=== PATIENT | female | born 1985 | race Caucasian/White ===

== ENCOUNTER 2016-11-07 18:16 | Inpatient (IN) | payer MEDICAID ==
[~2016-11-07] VITALS: Ht 160 cm; Wt 89.4 kg
[~2016-11-07 18:16] MED LIST: CEPH500 PO; ENOX40P SC; LORA-392 PO; OXYC5 PO; Z.0.NO CURRENT MEDS; ZOLP1TAB32 PO
[2016-11-07 19:41] VITALS: BP 133/86; PULSE 87
[2016-11-07 19:52] LABS: AUTOMATED NEUTROPHIL # 13.9 TH/MM3 (1.8-7.7); BASOPHIL % 0.3 % (0.0-2.0); EOSINOPHIL # 0.1 TH/MM3 (0-0.4); EOSINOPHIL % 0.7 % (0.0-4.0); HEMATOCRIT 33.4 % (35.0-46.0); HEMO FLAGS DIFF FINAL; LYMPH % 10.6 % (9.0-44.0); LYMPHOCYTE # 1.8 TH/MM3 (1.0-4.8); MEAN CELL VOLUME 87.2 FL (80.0-100.0); MEAN CORPUSCULAR HEMOGLOBIN 30.6 PG (27.0-34.0); MEAN CORPUSCULAR HGB CONC 35.1 % (32.0-36.0); MONO % 4.2 % (0.0-8.0); NEUT % 84.2 % (16.0-70.0); PLATELET COUNT 264 TH/MM3 (150-450); RED BLOOD COUNT 3.83 MIL/MM3 (4.00-5.30); RED CELL DISTRIBUTION WIDTH 14.3 % (11.6-17.2); WHITE BLOOD COUNT 16.5 TH/MM3 (4.0-11.0)
[2016-11-07 19:56] LABS: BACTERIA, URINE RARE /hpf; BLOOD, URINE SMALL (NEG); COMMENT (UR) CULT NOT INDICATED; CULTURE IF INDICATED CULT NOT INDICATED; GLUCOSE,URINE NEG (NEG); KETONE, URINE NEG (NEG); NITRITE,URINE NEG (NEG); SQUAMOUS EPITHELIAL CELL URINE 4 /hpf (0-5); URINE COLOR LIGHT-YELLOW (YELLW/STRAW)
[2016-11-07] MEDS ORDERED: SODIUM CHLORIDE FLUSH PRN IVF (20:00)
[2016-11-07] MEDS ORDERED: NS 1000 ML IV PRN (20:00)
[2016-11-07] MEDS ORDERED: CITRIC ACID-SODIUM CITRATE LIQ 30 ML UDC PO SCH (20:00)
[2016-11-07] MEDS ORDERED: NS 500 ML BOLUS IV PRN (20:00)
[2016-11-07] MEDS ORDERED: LACTATED RINGER'S 1000 ML INJ 1,000 ML IV SCH (20:00)
[2016-11-07] MEDS ORDERED: MISOPROSTOL 25 MCG SUPP VAGINAL ONE (20:00)
[2016-11-07] MEDS ORDERED: NS 1000 ML XX PRN (20:00)
[2016-11-07] MEDS ORDERED: MINERAL OIL 10 ML VIAL TOP PRN (20:00)
[2016-11-07] MEDS: LACTATED RINGER'S 1000 ML IV SCH (20:00)
[2016-11-07] MEDS ORDERED: OXYTOCIN 30 UNITS 500ML PREMIX IV ONE (20:00)
[2016-11-07] MEDS ORDERED: LACTATED RINGER'S 1000 ML BOLUS IV PRN (20:00)
[2016-11-07] MEDS ORDERED: MISOPROSTOL 25 MCG SUPP - repeat dose VAGINAL PRN (20:00)
[2016-11-07] MEDS ORDERED: LIDOCAINE HCL 1% 50 ML VIAL I-DERMAL PRN (20:00)
[2016-11-07] MEDS ORDERED: LIDOCAINE HCL 1% 50 ML VIAL INFIL PRN (20:00)
[2016-11-07] MEDS ORDERED: ZOLPIDEM TARTRATE 10 MG TAB PO PRN (20:00)
[2016-11-07 20:11] VITALS: RESP 18
[2016-11-07] MEDS ORDERED: ACETAMINOPHEN 325 MG TAB PO PRN (20:15)
[2016-11-07] MEDS: SODIUM CHLORIDE FLUSH BID IVF SCH (21:00)
[2016-11-08] VITALS (44 sets, daily range): BP systolic 108–159; BP diastolic 58–92; PULSE 79–100; RESP 16–18; TEMP 97.3–99.7
[2016-11-08 00:02] LABS: ALT (GPT) 20 U/L (10-53); ANION GAP 11 MEQ/L (5-15); AST (GOT) 16 U/L (15-37); BICARBONATE 21.5 MEQ/L (21.0-32.0); BLOOD UREA NITROGEN 11 MG/DL (7-18); CHLORIDE 107 MEQ/L (98-107); GLOMERULAR FILTRATION RATE 166 ML/MIN (>89); POTASSIUM 3.3 MEQ/L (3.5-5.1); SODIUM (NA) 139 MEQ/L (136-145)
[2016-11-08 00:04] LABS: ALKALINE PHOSPHATASE 147 U/L (45-117); TOTAL BILIRUBIN ADULT 0.2 MG/DL (0.2-1.0)
[2016-11-08] MEDS: SODIUM CHLORIDE FLUSH BID IVF SCH ×2 (07:46→21:00)
[2016-11-08] MEDS: LACTATED RINGER'S 1000 ML IV SCH ×3 (07:48→20:00)
[2016-11-08] MEDS ORDERED: MISOPROSTOL 25 MCG SUPP VAGINAL ONE (08:45)
[2016-11-08] MEDS ORDERED: MISOPROSTOL 25 MCG SUPP - repeat dose VAGINAL PRN (08:45)
[2016-11-08] MEDS ORDERED: OXYTOCIN 30 UNITS/NS 500ML PREMIX IV SCH (09:00)
[2016-11-08] MEDS: ONDANSETRON HCL 4 MG/2 ML VIAL IV PRN ×2 (12:18→19:47)
[2016-11-08] MEDS ORDERED: fentaNYL 2MCG-BUPIV 0.125% INJ 100 ML ONE ×2 (13:43→20:47)
[2016-11-08] MEDS ORDERED: ePHEDrine/NS 50 MG/5 ML SYR ONE (14:07)
[2016-11-08] MEDS ORDERED: ACETAMINOPHEN 1000 MG/100 ML VIAL IV ONE (23:00)
[2016-11-09] VITALS (22 sets, daily range): BP systolic 126–140; BP diastolic 72–85; PULSE 63–93; RESP 16–20; TEMP 98.3–100.8; O2SAT 85–97
[2016-11-09] MEDS ORDERED: diphenhydrAMINE HCL 50 MG/ML VIAL IV ONE (00:15)
[2016-11-09] MEDS ORDERED: ACETAMINOPHEN 1000 MG/100 ML VIAL IV ONE (03:16)
[2016-11-09] MEDS ORDERED: OXYTOCIN 10 UNIT/ML AMP ONE (03:16)
[2016-11-09] MEDS ORDERED: fentaNYL 2MCG-BUPIV 0.125% INJ 100 ML ONE (03:20)
[2016-11-09] MEDS: LACTATED RINGER'S 1000 ML IV SCH (03:30)
[2016-11-09] MEDS ORDERED: ceFAZolin 2 GM PREMIX 50 ML IV ONE (03:50)
[2016-11-09] MEDS ORDERED: CITRIC ACID-SODIUM CITRATE LIQ 30 ML UDC PO ONE (03:50)
[2016-11-09] MEDS ORDERED: MORPHINE SULFATE PF 5 MG/10 ML VIAL ONE (05:16)
[2016-11-09] MEDS ORDERED: ONDANSETRON HCL 4 MG/2 ML VIAL ONE (05:17)
[2016-11-09] MEDS ORDERED: SODIUM CHLORIDE 0.9% FLUSH 5 ML FLUSH IV PRN (06:00)
[2016-11-09] MEDS ORDERED: ONDANSETRON HCL 4 MG/2 ML VIAL IV PUSH PRN (06:00)
[2016-11-09] MEDS ORDERED: OXYTOCIN 30 UNITS-500ML PREMIX 500 ML IV ONE ×2 (06:00)
[2016-11-09] MEDS ORDERED: SIMETHICONE 80 MG CHEWABLE TAB PO PRN (06:00)
[2016-11-09] MEDS ORDERED: KETOROLAC TROMETHAMINE 30 MG/ML (IVP) VIAL ONE (06:38)
[2016-11-09] MEDS ORDERED: OXYTOCIN 30 UNITS-500ML PREMIX 500 ML ONE (07:40)
[2016-11-09] MEDS: SODIUM CHLORIDE 0.9% FLUSH 5 ML FLUSH IV SCH (09:00)
--- NOTE | 2016-11-09 09:10 | MH ---
cc: Irving BRICEÑO DATE OF SURGERY 11/07/2016 REASON FOR ADMISSION 1. Intrauterine at 39-1/2 weeks 2. Preeclampsia HISTORY OF PRESENT ILLNESS Ms. Valverde is a 31-year-old white female para 0-0-1-0 whose last menstrual period and early ultrasound put her at 39-1/2 week. She came in to the office with a large weight gain, high blood pressure and brisk reflexes. She is not having any other signs or symptoms of preeclampsia. She is being admitted to the labor and delivery unit for Cytotec induction followed by Pitocin. I was concerned about the baby's weight and I estimate it at 8-1/2 pound. I got an ultrasound to confirm that and the ultrasound showed 8 pounds 6 ounces. PAST OBSTETRICAL HISTORY She is Rh negative. Her GBS is negative. She is para 0-0-1-0. PAST LEAD ARCHITECT HISTORY Her Pap smear was negative/negative in 04/13. PAST MEDICAL HISTORY Her past medical history is remarkable for heartburn and anemia. PAST SURGICAL HISTORY Her past surgical history is remarkable for knee surgery in and hand surgery in 2008. SOCIAL HISTORY She is . She has works as a clerk travel reservations. She smokes one-pack a day. She did not drink alcohol during her . No drug use. FAMILY HISTORY Her family history is remarkable for high blood pressure. ALLERGIES No known drug allergies. CURRENT MEDICATIONS 1. Protonix 20 mg one p.o. q. day 2. Vitamins one p.o. q. day REVIEW OF SYSTEMS She denies scotoma, headaches. She denies any shortness of breath, chest pain or pressure. She reports good movement. There is no rupture of membranes. No bleeding. No contractions. She is having some swelling in the lower extremities. PHYSICAL EXAM Her physical exam reveals a well-developed, well-nourished female in no acute distress. VITAL SIGNS: Blood pressure in the office was 140/90, repeat was 140/90. She had a 5 pounds weight gain in one week. HEENT: Normocephalic, atraumatic. NECK: Supple. Trachea is in the midline. No thyromegaly or adenopathy. CHEST: Clear to auscultation. HEART: The heart has regular rate and rhythm without murmur. ABDOMEN: The abdomen is soft and nontender. No hepatosplenomegaly. ABDOMEN: Her abdomen is gravid, fundal height is 40 cm. PELVIC: The cervix examine, she has 1-2 thick -1, slightly posterior, soft. EXTREMITIES: She has +1 lower extremity swelling. There is no clubbing. There is no calf tenderness. LABORATORY DATA The laboratory workup reveals a white count 16.5, hemoglobin of 11, hematocrit of 33.4. She has a slight left shift. Her AST and ALT are normal. Her potassium is slightly low at 3.3. Her urine is negative for protein. ASSESSMENT/PLAN 1. Intrauterine at 39-1/2 weeks 2. Preeclampsia. We will go ahead and give her Cytotec and give her Pitocin. 3. Rh negative. She did receive her RhoGAM. We will check the baby's blood type when its delivered. 4. Smoker. We have advised her to quit especially now that the baby is here. We discussed those risks in some detail. 5. Anemia. We will supplement her with iron after the baby delivers. R. MD NATALIYA Dunbar/MARISSA /8:21 AM /9:01 AM MTDJuan Miguel
[2016-11-09] MEDS ORDERED: EPIDURAL-NO SYSTEMIC NARCOTICS XX PRN (09:15)
[2016-11-09] MEDS ORDERED: EPIDURAL-DO NOT ADMINISTER ANTICOAGULANTS XX PRN (09:15)
[2016-11-09] MEDS ORDERED: EPIDURAL-DIPHENHYDRAMINE HCL 50 MG/ML VIAL IV PUSH PRN (09:15)
[2016-11-09] MEDS ORDERED: EPIDURAL-NALOXONE HCL 0.4 MG/ML AMP IV PRN (09:15)
[2016-11-09] MEDS ORDERED: EPIDURAL-DIPHENHYDRAMINE HCL 50 MG CAP PO PRN (09:15)
[2016-11-09] MEDS ORDERED: LACTATED RINGER'S 1000 ML INJ 1,000 ML IV SCH (10:56)
[2016-11-09] MEDS: IBUPROFEN 600 MG TAB PO PRN ×2 (15:41→22:57)
[2016-11-09] MEDS: DOCUSATE SODIUM 50 MG/SENNA 8.6 MG TAB PO PRN (15:41)
[2016-11-09] MEDS ORDERED: OXYTOCIN 30 UNITS-500ML PREMIX 500 ML IV PRN (16:00)
[2016-11-09] MEDS: oxyCODONE/ACETAMINOPHEN 5 MG/325 MG TAB PO PRN ×2 (17:38→22:57)
--- NOTE | 2016-11-09 22:16 | MP ---
cc: Irving CABEZAS MD DATE OF SURGERY 11/09/16 PREOPERATIVE DIAGNOSIS 1. Intrauterine at 39 1/2 weeks 2. Arrest of active phase of labor 3. Preeclampsia. POSTOPERATIVE DIAGNOSIS 1. Intrauterine at 39 1/2 weeks 2. Arrest of active phase of labor 3. Preeclampsia. 4. Chorioamnionitis. PROCEDURE Primary low transverse section ANESTHESIA Epidural SURGEON Irving Cabezas MD FINDINGS A normal male with Apgars of one and seven. The weight was 9 pounds 4 ounces, normal tubes, ovaries, normal uterus. COMPLICATIONS None. COUNTS Correct. ESTIMATED BLOOD LOSS 600 mL FLUIDS Crystalloids. DISPOSITION This patient tolerated the procedure well and went to recovery room in good condition. INDICATION This is a lady who came in for induction. She progressed fairly slowly to 8 cm and the lip in the middle of the night was getting slightly swollen. We gave her some Benadryl. The baby had an episode of tachycardia for about half an hour and then that resolved and the strip looked good. She arrested at 8 cm. We give her several hours, then she spiked a temperature of 100.8. I took her to the operating room for a primary low transverse section. PROCEDURE IN DETAIL Under an adequate level of anesthesia, she was prepped and draped for abdominal surgery. A Pfannenstiel incision was made and carried down to the fascia. The fascia was taken off the rectus muscle by blunt and sharp dissection. The rectus muscles were spread bluntly and the peritoneum was entered under direct vision without difficulty. The incision was extended with care to avoid the urinary bladder. A bladder blade was placed and a bladder flap created in the usual fashion. The uterine incision was made in a transverse manner along the lower uterine segment which was now well-developed. It was taken down in the midline until the intrauterine cavity was entered. A large amount of clear fluid was noted. The vertex was grasped with a suction cup and delivered. The hypopharynx and nasopharynx were suctioned and the remainder of the infant delivered without difficulty. The cord was doubly clamped and cut and the infant handed to the resuscitation team present. The placenta was then delivered manually. The uterus was curettaged twice with a wet lap and irrigated with a large amount of fluid. The uterine incision was then repaired with 2-0 Vicryl in a running locking fashion, with the second layer imbricating the first. Hemostasis was excellent. The cul-de-sac and gutters were cleaned of blood and debris. The uterus was delivered back into the abdomen. The rectus muscles were reapproximated with 0 Vicryl in interrupted fashion. The fascia was repaired from lateral to midline with 0 Vicryl and the subcu was repaired with 3-0 Vicryl. The skin was repaired with a 4-0 Vicryl in a subcuticular manner. The wound was sterilely dressed. She tolerated the procedure well and went to the recovery room in satisfactory condition. R. MD NATALIYA Dunbar/ /8:26 AM /10:01 PM
[2016-11-10] VITALS: BP 104/76; PULSE 95; RESP 18; TEMP 98.2
[2016-11-10] MEDS: oxyCODONE/ACETAMINOPHEN 5 MG/325 MG TAB PO PRN ×4 (04:09→17:37)
[2016-11-10] MEDS: IBUPROFEN 600 MG TAB PO PRN ×3 (05:36→17:36)
[2016-11-10 06:07] LABS: AUTOMATED NEUTROPHIL # 12.1 TH/MM3 (1.8-7.7); BASOPHIL % 0.2 % (0.0-2.0); EOSINOPHIL # 0.1 TH/MM3 (0-0.4); HEMATOCRIT 28.3 % (35.0-46.0); HEMO FLAGS DIFF FINAL; LYMPH % 11.7 % (9.0-44.0); LYMPHOCYTE # 1.7 TH/MM3 (1.0-4.8); MEAN CELL VOLUME 89.2 FL (80.0-100.0); MEAN CORPUSCULAR HEMOGLOBIN 30.3 PG (27.0-34.0); MONO % 5.9 % (0.0-8.0); NEUT % 81.2 % (16.0-70.0); PLATELET COUNT 213 TH/MM3 (150-450); RED BLOOD COUNT 3.17 MIL/MM3 (4.00-5.30); RED CELL DISTRIBUTION WIDTH 14.4 % (11.6-17.2); WHITE BLOOD COUNT 14.9 TH/MM3 (4.0-11.0)
--- NOTE | 2016-11-10 09:48 | HHI.OB ---
Subjective Post Operative Day: 1 Objective Vitals/I&O Vital Signs Date Time Temp Pulse Resp B/P Pulse Ox O2 Delivery O2 Flow Rate FiO2 11/10/16 00:00 98.2 95 18 104/76 Result Diagram: 11/10/160 11/07/16 302 Objective Remarks GENERAL: Well-nourished, well-developed patient. CARDIOVASCULAR: Regular rate and rhythm without murmurs, gallops, or rubs. RESPIRATORY: Breath sounds equal bilaterally. No accessory muscle use. ABDOMEN/GI: Abdomen soft, non-tender, bowel sounds present. Incision: dressing, Clean, dry and intact. Fundus: Firm, non-tender at umbilicus. GENITOURINARY: Light to moderate bleeding. EXTREMITIES: No cyanosis or edema, non-tender, without signs of DVT. Medications and IVs Current Medications Medications (Trade) Dose Ordered Sig/Juan Route Start Time Stop Time Status Last Admin (NS Flush) 2 ml BID IV 11/09/16 09:00 (NS Flush) 2 ml UNSCH PRN IV 11/09/16 06:00 (Mylicon Chew) 80 mg QID PRN PO 11/09/16 06:00 (Motrin) 600 mg Q6H PRN PO 11/09/16 06:00 11/10/16 05:36 (Percocet 5-325 Mg) 1 tab Q4H PRN PO 11/09/16 06:00 11/10/16 04:09 (Percocet 5-325 Mg) 2 tab Q4H PRN PO 11/09/16 06:00 (Dyana-Colace) 2 tab Q12H PRN PO 11/09/16 06:00 11/09/16 15:41 (M-M-R Ii Inj) 0.5 ml ONCE ONCE SQ 11/10/16 16:00 11/10/16 16:01 (Boostrix Inj) 0.5 ml ONCE ONCE IM 11/10/16 16:00 11/10/16 16:01 (Zofran Inj) 4 mg Q6H PRN IV PUSH 11/09/16 06:00 Assessment/Plan Problem List: (1) Anemia Plan: will treat post with oral iron (2) S/P primary low transverse Plan: routine (3) Pre-eclampsia Plan: resolving Assessment and Plan POD #1 PT DOING WELL PAIN WELL MANAGED WITH ORAL PAIN MEDICATION PT TO SHOWER TODAY AND REMOVE DRESSING IN NURSERY ON ANTIBIOTIC ROUTINE Discharge Planning CONSIDER DC HOME IN 1-2 DAYS Serena Wren Nov 10, 2016 09:48
--- NOTE | 2016-11-10 09:49 | HHI.DCPOC ---
Discharge Care Plan Diagnosis: (1) Anemia (2) Normal vaginal delivery (3) Pre-eclampsia Your Health Problems Are: Vaginal delivery Report Symptoms to Your Doctor -Temperate above 100.5 degrees -Redness, of incision or excessive or foul smelling drainage -Unusual pain or calf pain -Increased vaginal bleeding -Painful or difficulty urinating -Feelings of extreme sadness or anxiety after 2 weeks Goals to Promote Your Health * To prevent worsening of your condition and complications * To maintain your health at the optimal level Directions to Meet Your Goals Take your medications as prescribed Follow your dietary instruction Follow activity as directed Ensure plenty of rest for recovery Drink fluids for hydration Keep your appointments as scheduled Take your immunizations and boosters as scheduled If your symptoms worsen call your PCP, if no PCP go to Urgent Care Center or Emergency Room Smoking is Dangerous to Your Health. Avoid second hand smoke Call the 24-hour crisis hotline for domestic abuse at Serena Wren Nov 10, 2016 09:49
[2016-11-10] MEDS: DOCUSATE SODIUM 50 MG/SENNA 8.6 MG TAB PO PRN (11:18)
[2016-11-10] MEDS ORDERED: MEASLES, MUMPS, RUBELLA VACCINE 0.5 ML VIAL SQ ONE (16:00)
[2016-11-10] MEDS ORDERED: DIPHTH/TETANUS/ACEL PERTUSSIS (BOOSTER) 0.5 ML VIAL/PFS IM ONE (16:00)
[2016-11-10] MEDS ORDERED: MAGNESIUM HYDROXIDE SUSP 30 ML CUP PO PRN (17:00)
[2016-11-10] MEDS ORDERED: PANTOPRAZOLE SOD 20 MG DELAYED RELEASE TAB PO ONE (17:00)
[2016-11-10 22:00] VITALS: BP 120/87; PULSE 80; RESP 18; TEMP 97.6
[2016-11-10] MEDS: diphenhydrAMINE HCL 25 MG CAP PO PRN (22:17)
[2016-11-11] MEDS: IBUPROFEN 600 MG TAB PO PRN ×4 (00:41→18:43)
[2016-11-11] MEDS: oxyCODONE/ACETAMINOPHEN 5 MG/325 MG TAB PO PRN ×4 (00:41→18:43)
[2016-11-11] MEDS: DOCUSATE SODIUM 50 MG/SENNA 8.6 MG TAB PO PRN (07:14)
[2016-11-11] MEDS: diphenhydrAMINE HCL 25 MG CAP PO PRN ×3 (07:20→18:42)
[2016-11-11] MEDS: PANTOPRAZOLE SOD 20 MG DELAYED RELEASE TAB PO SCH (09:37)
[2016-11-11] MEDS ORDERED: IBUP-232 PO (13:47)
[2016-11-11] MEDS ORDERED: OXYC1TAB63 PO (13:47)
[2016-11-11] MEDS ORDERED: METHYLPREDNISOLONE 4 MG PO SCH (18:00)
[2016-11-11] MEDS: SODIUM CHLORIDE 0.9% FLUSH 5 ML FLUSH IV SCH (21:00)
[2016-11-11] MEDS ORDERED: METHYLPREDNISOLONE 8 MG PO SCH (21:00)
[2016-11-11] MEDS ORDERED: [UNRECOGNIZED DRUG - OTHER] PO SCH (21:00)
[2016-11-12] MEDS: DOCUSATE SODIUM 50 MG/SENNA 8.6 MG TAB PO PRN ×2 (00:40→12:02)
[2016-11-12] MEDS: diphenhydrAMINE HCL 25 MG CAP PO PRN ×3 (00:40→12:01)
[2016-11-12] MEDS: oxyCODONE/ACETAMINOPHEN 5 MG/325 MG TAB PO PRN ×3 (00:40→12:02)
[2016-11-12] MEDS: IBUPROFEN 600 MG TAB PO PRN ×3 (00:40→12:02)
[2016-11-12] MEDS ORDERED: METHYLPREDNISOLONE 4 MG PO SCH ×3 (08:00→18:00)
[2016-11-12] MEDS: PANTOPRAZOLE SOD 20 MG DELAYED RELEASE TAB PO SCH (08:14)
[2016-11-12] MEDS ORDERED: METHYLPREDNISOLONE 8 MG PO SCH (21:00)
[2016-11-12] MEDS ORDERED: [UNRECOGNIZED DRUG - OTHER] PO SCH (21:00)
[2016-11-13] MEDS ORDERED: METHYLPREDNISOLONE 4 MG PO SCH (21:00)
[2016-11-13] MEDS ORDERED: [UNRECOGNIZED DRUG - OTHER] PO SCH (21:00)
== END 2016-11-12 14:13 | disposition home or self-care (01) | DRG 765 ==
LOC: H2EB 18:16 → H1EA 11-09 07:54
PROVIDERS: ADMIT Obstetrics & Gynecology; ATTEND Obstetrics & Gynecology
PROC: 3E0P7GC Introduction of Other Therapeutic Substance into Female Reproductive, Via Natural or Artificial Opening (ICD-10-PCS; 2016-11-07)
PROC: 10D00Z1 Extraction of Products of Conception, Low, Open Approach (ICD-10-PCS; principal; 2016-11-09)
DX: O14.94 Unspecified pre-eclampsia, complicating childbirth (principal); O41.1230 Chorioamnionitis, third trimester, not applicable or unspecified; O99.334 Smoking (tobacco) complicating childbirth; O99.02 Anemia complicating childbirth; O62.1 Secondary uterine inertia; O76 Abnormality in fetal heart rate and rhythm complicating labor and delivery; Z37.0 Single live birth; Z3A.39 39 weeks gestation of pregnancy
CPT/HCPCS: 80053; 81001; 85025; 85461; 86850; 86900; 86901; 90384; 90715; J0131; J0690; J1200; J1885; J2274; J2405; J2590; J2790; J3010; J7120; J7509

== ENCOUNTER 2016-11-16 15:12 | Inpatient (IN) | payer MEDICAID ==
[2016-11-16] VITALS (17 sets, daily range): BP systolic 119–181; BP diastolic 69–104; PULSE 58–92; RESP 18–26; TEMP 98.2–98.3; O2SAT 94–99
[~2016-11-16] VITALS: Ht 160 cm; Wt 77.0 kg
[~2016-11-16 15:12] MED LIST changes: +IBUP-232 PO; +OXYC1TAB63 PO
[2016-11-16] MEDS ORDERED: LACTATED RINGER'S 1000 ML INJ 1,000 ML IV SCH (15:32)
[2016-11-16] MEDS ORDERED: CALCIUM GLUCONATE 10% 1 GM/10 ML VIAL IV PUSH PRN (16:15)
[2016-11-16] MEDS ORDERED: oxyCODONE/ACETAMINOPHEN 5 MG/325 MG TAB PO PRN (16:15)
[2016-11-16] MEDS ORDERED: SODIUM CHLORIDE 0.9% FLUSH 5 ML FLUSH IV PRN (16:15)
[2016-11-16] MEDS ORDERED: MAGNESIUM SULFATE 4 GM PREMIX 100 ML IV ONE (16:15)
[2016-11-16] MEDS ORDERED: MULTIVIT/MIN/PREN/FOL AC/IRON PRENATAL TAB PO SCH (16:15)
[2016-11-16] MEDS ORDERED: DOCUSATE SODIUM 100 MG CAP PO PRN (16:15)
[2016-11-16] MEDS ORDERED: ONDANSETRON HCL 4 MG/2 ML VIAL IV PRN (16:15)
[2016-11-16] MEDS ORDERED: HYDROCORTISONE 1% LOTN 120 ML BTL TOPICAL SCH (16:30)
--- NOTE | 2016-11-16 16:38 | HHI.HP ---
History & Physical H&P HPI Chief Complaint 31 yo who is one week . Care with Dr. Cabezas. Patient was sent from the office after her routine visit for elevated BPs. The patient reports a history of elevated BPs since her late teens, but has never taken hypertensive mediations. This she was diagnosed with PIH and was induced at 39 weeks. She had an chorioamnionitis and arrest of labor requireing a . She also developed a non-specific rash on her lower extremities, thighs and abdomen. She has just completed a steroid taper for this. She denies any fevers since her admission. She reports increased LE swelling bilaterally and lower abdominal pain. Denies RUQ pain, N/V. No c/o of neurologic symptoms. Date Seen: Nov 16, 2016 Travel History International Travel<30 Days: No Contact w/Intl Traveler<30Days: No Known Affected Area: No History (Limited) History Past Medical History Narrative Medical Elevated BPs since teenager Obstetric History Obstetric History x 1 SAB x 1 Past Surgical History Narrative Surgical Knee surgery Family History Narrative Family History Chronic HTN Social History Alcohol Use: No Tobacco Use: Yes Substance Abuse: No Allergies-Medications Allergies-Medications (Allergen,Severity, Reaction): Coded Allergies: No Known Allergies (Unverified , 11/09/16) Home Meds Active Scripts Oxycodone-Acetaminophen 5-325 mg Tab1 Tab PO Q4H #30 TAB Prov:Irving Cabezas MD 11/11/16 Ibuprofen 600 Mg Qcs261 Mg PO Q6H #30 TAB Ref 2 Prov:Irving Cabezas MD 11/11/16 Reported Medications Miscellaneous (No Current Meds) Misc 07/17/13 Enoxaparin sodium (Lovenox)40 Mg/0.4 Ml Inj40 Mg SC 04/04/13 Cephalexin Monohydrate (Keflex 500 mg Cap)500 Mg Lxi452 Mg PO BID 04/04/13 Zolpidem Tartrate (Ambien 5 Mg Tab)5 Mg Tab5 Mg PO HSPRN 04/04/13 Oxycodone Hcl (Oxycodone)5 Mg Tab10 Mg PO Q4HPRN #40 TABS 04/04/13 Lorazepam (Ativan)0.5 Mg Tab0.5 Mg PO Q8HPRN 04/04/13 ROS Review of Systems General / Constitutional: No: Fever, Chills Eyes: No: Blurred Vision HENT: No: Headaches, Lightheadedness Cardiovascular: No: Chest Pain or Discomfort, Palpitations Respiratory: No: Cough, Short of Breath Gastrointestinal: Abdominal Pain, No: Nausea, Vomiting Genitourinary: Vaginal Bleeding (scant), No: Urgency, Frequency, Dysuria, Discharge Musculoskeletal: Edema, No: Weakness Skin: Rash, Itching, Lesions, No Breast Tenderness, No Breast Swelling Neurologic: Syncope, Focal Abnormalities, No: Seizures Hematologic/Lymphatic: No Easy Bruising, No Lymph Node Enlargement Physical Exam Physical Exam Narrative GENERAL: Well-nourished, well-developed patient. Appears tired. SKIN: Warm and dry. erythematous rash on LE bilaterally and left thigh>right. HEAD: Normocephalic and atraumatic. EYES: No scleral icterus. No injection or drainage. ENT: No nasal drainage noted. Mucous membranes pink. Airway patent. NECK: Supple, trachea midline. No JVD. CARDIOVASCULAR: Regular rate and rhythm without murmurs, gallops, or rubs. RESPIRATORY: Breath sounds equal bilaterally. No accessory muscle use. BREASTS: Bilateral exam showed no masses , no retractions, no nipple discharge. ABDOMEN/GI: Abdomen soft, mild tenderness lower abdomen with deep palpation GENITOURINARY: Urinary cath placed EXTREMITIES: +2 LE edema. +3 DTR and 2 beats clonus BACK: Nontender without obvious deformity. Normal ROM NEUROLOGICAL: Awake and alert. Motor and sensory grossly within normal limits. Normal speech. Data Data Data Vital Signs Reviewed: Yes Orders Vital Signs (Adult) .ON ADMISSION (11/16/16 15:32) Urinalysis - C+S If Indicated (11/16/16 15:32) Lactated Ringer's 1000 Ml Inj (Lr 1000 M (11/16/16 15:32) Ob (2e) Additional Admit Info (11/16/16 16:06) Admit To Inpatient (11/16/16 ) Code Status (11/16/16 16:05) Vital Signs (Adult) Q5MX4,Q15MX4,Q30MX2,Q1H (11/16/16 16:05) Activity Bed Rest (11/16/16 16:05) Intake + Output Q1H (11/16/16 16:05) ^ Notify Parameters (11/16/16 16:05) Urinary Catheter Management DOUG.Q8H (11/16/16 16:05) ^ Check Deep Tendon Reflexes Q1H (11/16/16 16:05) Diet Liquid (11/16/16 Dinner) Lactated Ringer's 1000 Ml Inj (Lr 1000 M (11/16/16 16:05) Sodium Chloride 0.9% Flush (Ns Flush) (11/16/16 16:15) Sodium Chloride 0.9% Flush (Ns Flush) (11/16/16 21:00) Magnesium Sulfate 40 Gm Premix (Magnesiu (11/16/16 16:05) Labetalol Inj (Trandate Inj) (11/16/16 17:15) Calcium Gluconate Inj (Calcium Gluconate (11/16/16 16:15) Ondansetron Inj (Zofran Inj) (11/16/16 16:15) Docusate Sodium (Colace) (11/16/16 16:15) Odxkfxbg-Jko-Lbfbk-Iron Prenat (Stuartna (11/16/16 16:15) Magnesium Sulfate 4 Gm Premix (Magnesium (11/16/16 16:15) ^ Turnaround Engineer / Telemetry (11/16/16 16:05) Ibuprofen (Motrin) (11/16/16 16:15) Oxycodone-Acetamin 5-325 Mg (Percocet (11/16/16 16:15) Inpatient Certification (11/16/16 ) Comprehensive Metabolic Panel (11/16/16 16:17) Total Protein 24hr Urine (11/16/16 16:17) Uric Acid (11/16/16 16:17) Complete Blood Count With Diff (11/16/16 16:17) Nifedipine (Procardia) (11/16/16 17:00) Hydrocortisone 1% Lotion (Hydrocortisone (11/16/16 16:30) MDM MDM Plan 1 week post continue Motrin and Percocet, colace, PNV pumping CHTN with superimposed pre-eclampsia BPs 160-180/100 IV and magnesium sulfate started for seizure prophylaxis Procardia now x 1, repeat per protocol Labetalol as indicated CBC, CMP, cath UA, 24 hour urine consult IM as indicated for anti-hypertensive medications after magnesium sulfate or if BP not controlled Non-specific rash s/p one week of steroids topical hydrocortisone at this time consult IM or dermatology if no improvement Physician Communication Dr. Cabezas notified of admission Annmarie Mendoza MD, Lisa Marie MD Nov 16, 2016 16:38
[2016-11-16] MEDS ORDERED: NIFEdipine 10 MG CAP ONE (16:39)
[2016-11-16] MEDS: IBUPROFEN 600 MG TAB PO PRN (16:42)
[2016-11-16 16:57] LABS: AUTOMATED NEUTROPHIL # 9.8 TH/MM3 (1.8-7.7); BASOPHIL % 0.3 % (0.0-2.0); EOSINOPHIL # 0.3 TH/MM3 (0-0.4); HEMATOCRIT 32.7 % (35.0-46.0); LYMPHOCYTE # 1.9 TH/MM3 (1.0-4.8); MEAN CELL VOLUME 90.5 FL (80.0-100.0); MEAN CORPUSCULAR HEMOGLOBIN 30.3 PG (27.0-34.0); MEAN CORPUSCULAR HGB CONC 33.5 % (32.0-36.0); MONO % 4.7 % (0.0-8.0); PLATELET COUNT 421 TH/MM3 (150-450); RED BLOOD COUNT 3.62 MIL/MM3 (4.00-5.30); RED CELL DISTRIBUTION WIDTH 14.3 % (11.6-17.2); WHITE BLOOD COUNT 12.6 TH/MM3 (4.0-11.0)
[2016-11-16] MEDS ORDERED: NIFEdipine 20 MG CAP PO PRN (17:00)
[2016-11-16 17:03] LABS: HEMO FLAGS AUTO DIFF
[2016-11-16] MEDS ORDERED: LABETALOL HCL 100 MG/20 ML VIAL IV PUSH PRN (17:15)
[2016-11-16 17:20] LABS: ANION GAP 9 MEQ/L (5-15); AST (GOT) 39 U/L (15-37); BICARBONATE 24.9 MEQ/L (21.0-32.0); BLOOD UREA NITROGEN 20 MG/DL (7-18); CHLORIDE 108 MEQ/L (98-107); GLOMERULAR FILTRATION RATE 102 ML/MIN (>89); POTASSIUM 4.1 MEQ/L (3.5-5.1); SODIUM (NA) 142 MEQ/L (136-145); URIC ACID 7.1 MG/DL (2.6-6.0)
[2016-11-16 17:24] LABS: ALKALINE PHOSPHATASE 173 U/L (45-117); ALT (GPT) 190 U/L (10-53); TOTAL BILIRUBIN ADULT 0.2 MG/DL (0.2-1.0)
[2016-11-16] MEDS: LACTATED RINGER'S 1000 ML INJ 1,000 ML IV SCH (17:40)
[2016-11-16 17:49] LABS: BLOOD, URINE NEG (NEG); GLUCOSE,URINE NEG (NEG); KETONE, URINE NEG (NEG); NITRITE,URINE NEG (NEG); PH, URINE 6.5 (5.0-8.5); URINE COLOR LIGHT-YELLOW (YELLW/STRAW)
[2016-11-16 17:50] LABS: COMMENT (UR) CATH-CULT NOT IND; CULTURE IF INDICATED CATH CULTURE NOT IND
[2016-11-16] MEDS: MAGNESIUM SULFATE 40 GM PREMIX 1,000 ML IV SCH (17:51)
[2016-11-16 17:55] LABS: EOSINOPHILS 1 % (0-4); METAMYELOCYTES 3 % (0-1); NEUTROPHIL # MANUAL DIFF 9.3 TH/MM3 (1.8-7.7); POLYS (SEG NEUTROPHILS) 71 % (16-70); WBC DIFF SAMPLE 100
[2016-11-16 17:57] LABS: PLATELET ESTIMATE SMEAR NORMAL (NORMAL); PLATELET MORPHOLOGY NORMAL (NORMAL); SCAN/DIFF FINAL DIFF MANUAL; SLIDE REVIEW N
[2016-11-16] MEDS: diphenhydrAMINE HCL 50 MG CAP PO PRN (20:59)
[2016-11-16] MEDS: LABETALOL HCL 200 MG TAB PO SCH (20:59)
[2016-11-16] MEDS ORDERED: SODIUM CHLORIDE 0.9% FLUSH 5 ML FLUSH IV SCH (21:00)
[2016-11-16] MEDS ORDERED: ZOLPIDEM TARTRATE 5 MG TAB PO PRN (21:00)
[2016-11-17] VITALS (14 sets, daily range): BP systolic 104–132; BP diastolic 59–82; PULSE 72–91; RESP 16–18; TEMP 98–99
[2016-11-17] MEDS: IBUPROFEN 600 MG TAB PO PRN ×3 (00:10→15:53)
[2016-11-17] MEDS: diphenhydrAMINE HCL 50 MG CAP PO PRN ×2 (04:22→20:40)
[2016-11-17 06:02] LABS: AUTOMATED NEUTROPHIL # 7.8 TH/MM3 (1.8-7.7); BASOPHIL # 0.1 TH/MM3 (0-0.2); BASOPHIL % 0.6 % (0.0-2.0); EOSINOPHIL # 0.3 TH/MM3 (0-0.4); HEMATOCRIT 29.7 % (35.0-46.0); HEMO FLAGS DIFF FINAL; LYMPH % 16.9 % (9.0-44.0); LYMPHOCYTE # 1.8 TH/MM3 (1.0-4.8); MEAN CORPUSCULAR HEMOGLOBIN 31.1 PG (27.0-34.0); MONO % 7.4 % (0.0-8.0); NEUT % 72.1 % (16.0-70.0); PLATELET COUNT 402 TH/MM3 (150-450); RED BLOOD COUNT 3.34 MIL/MM3 (4.00-5.30); WHITE BLOOD COUNT 10.8 TH/MM3 (4.0-11.0)
[2016-11-17 06:30] LABS: ALKALINE PHOSPHATASE 148 U/L (45-117); ALT (GPT) 144 U/L (10-53); ANION GAP 11 MEQ/L (5-15); AST (GOT) 31 U/L (15-37); BICARBONATE 24.3 MEQ/L (21.0-32.0); BLOOD UREA NITROGEN 13 MG/DL (7-18); CHLORIDE 106 MEQ/L (98-107); GLOMERULAR FILTRATION RATE 108 ML/MIN (>89); POTASSIUM 3.5 MEQ/L (3.5-5.1); SODIUM (NA) 141 MEQ/L (136-145); TOTAL BILIRUBIN ADULT 0.2 MG/DL (0.2-1.0)
--- NOTE | 2016-11-17 08:08 | HHI.PR ---
Subjective Remarks doing well, no h/a, no scotoma resting well. Objective Vital Signs Date Time Temp Pulse Resp B/P Pulse Ox O2 Delivery O2 Flow Rate FiO2 11/17/16 06:08 72 16 118/73 11/17/16 05:15 73 16 120/76 11/17/16 04:15 98.0 72 16 117/69 11/17/16 03:07 79 16 108/62 11/17/16 02:09 78 16 112/65 11/17/16 01:07 76 16 122/70 11/17/16 00:00 98.4 84 16 125/76 11/16/16 23:01 82 26 119/69 11/16/16 21:55 81 18 131/79 11/16/16 21:06 98.2 82 18 139/84 11/16/16 20:00 84 18 127/77 11/16/16 18:45 79 135/86 11/16/16 18:30 81 133/83 11/16/16 17:55 92 146/80 11/16/16 17:50 73 134/80 11/16/16 17:45 71 147/86 11/16/16 17:44 70 138/82 11/16/16 17:30 74 134/75 11/16/16 16:16 70 178/104 11/16/16 16:00 65 181/100 11/16/16 15:59 66 173/100 11/16/16 15:45 64 99 11/16/16 15:40 98.3 11/16/16 15:40 58 94 11/16/16 15:34 18 I/O 11/16/16 11/16/16 11/16/16 11/17/16 11/17/16 11/17/16 07:00 15:00 23:00 07:00 15:00 23:00 Intake Total 480 ml Output Total 2550 ml 1225 ml Balance -2070 ml -1225 ml Intake Oral 480 ml Output Urine Total 2550 ml 1225 ml Result Diagram: 11/17/166 11/17/16 0446 Other Results Chest is clear CV RRR Abd is soft and NT, Incision is clean and dry Ext +2 swelling in LE Assessment and Plan Problem List: (1) Anemia Status: Acute (2) Pre-eclampsia Status: Acute Assessment and Plan Pre eclampsia Doing well, On Magnesium Will continue the mag for 24 hours and dc the mag tonite Will recheck the lfts tomorrow, they are on the decline now. Will continue the labetalol . Anemia will restart the fe by mouth when she goes home S/P C/S [place] she may have endometritis but she has been afebrile and her wbcs are just slg elevated Discussed Condition With patient Discharge Planning Plan to go home Sunday if stable, Problem Qualifiers (1) Anemia: Irving Cabezas MD Nov 17, 2016 08:08
[2016-11-17] MEDS ORDERED: LABE200T2 PO (08:15)
[2016-11-17] MEDS: LACTATED RINGER'S 1000 ML INJ 1,000 ML IV SCH (08:52)
[2016-11-17] MEDS: MAGNESIUM SULFATE 40 GM PREMIX 1,000 ML IV SCH (15:56)
[2016-11-17] MEDS: LABETALOL HCL 200 MG TAB PO SCH (20:39)
[2016-11-18 05:18] VITALS: O2SAT 98
[2016-11-18 05:24] VITALS: BP 133/85; PULSE 66
[2016-11-18 05:58] VITALS: RESP 18
[2016-11-18 07:00] LABS: ALKALINE PHOSPHATASE 148 U/L (45-117); ALT (GPT) 103 U/L (10-53); AST (GOT) 16 U/L (15-37); INDIRECT BILIRUBIN 0.1 MG/DL (0.0-0.8); TOTAL BILIRUBIN ADULT 0.2 MG/DL (0.2-1.0)
--- NOTE | 2016-11-18 07:31 | HHI.OB ---
Subjective Post Operative Day: 9 Remarks Pt slept well overnight. No HUIZAR/blurry vision or ruq pain. Objective Vitals/I&O Vital Signs Date Time Temp Pulse Resp B/P Pulse Ox O2 Delivery O2 Flow Rate FiO2 11/18/16 05:58 18 11/18/16 05:24 66 133/85 11/18/16 05:18 98 11/17/16 19:30 99.0 18 11/17/16 19:28 72 129/71 11/17/16 18:00 91 132/82 11/17/16 14:00 76 112/64 11/17/16 13:00 78 104/59 11/17/16 12:00 81 113/66 11/17/16 11:00 86 113/64 Result Diagram: 11/17/1644511/17/16445 Objective Remarks GENERAL: Well-nourished, well-developed patient. CARDIOVASCULAR: Regular rate and rhythm without murmurs, gallops, or rubs. RESPIRATORY: Breath sounds equal bilaterally. No accessory muscle use. ABDOMEN/GI: Abdomen soft, non-tender, bowel sounds present. Incision: Clean, dry and intact. Fundus: Firm, non-tender 16wk size. GENITOURINARY: Light to moderate bleeding. EXTREMITIES: No cyanosis, trace edema, non-tender, without signs of DVT. normal reflexes Medications and IVs Current Medications Medications (Trade) Dose Ordered Sig/Juan Route Start Time Stop Time Status Last Admin Lactated Ringer's 1,000 ml @ 125 mls/hr Q8H IV 11/16/16 15:32 11/16/16 17:51 (Lr 1000 ml Inj) 1,000 ml @ 75 mls/hr [id number] IV 11/16/16 16:05 11/17/16 08:52 (NS Flush) 2 ml UNSCH PRN IV 11/16/16 16:15 IV Flush 2 ml 2 ml BID IV 11/16/16 21:00 (Magnesium Sulfate 40 Gm Premix) 1,000 ml @ 50 mls/hr Q20H IV 11/16/16 16:05 11/17/16 15:56 (Calcium Gluconate Inj) 1 gm UNSCH PRN IV PUSH 11/16/16 16:15 (Zofran Inj) 4 mg Q6H PRN IV 11/16/16 16:15 (Colace) 100 mg BID PRN PO 11/16/16 16:15 (Stuartnatal Plus 3 ) 1 tab DAILY PO 11/16/16 16:15 (Motrin) 600 mg Q6H PRN PO 11/16/16 16:15 11/17/16 15:53 (Percocet 5-325 Mg) 1 tab Q4H PRN PO 11/16/16 16:15 11/17/16 21:04 (Hydrocortisone 1% Lotion) 1 applic Q8HR TOPICAL 11/16/16 16:30 11/16/16 20:59 (Benadryl) 50 mg Q6H PRN PO 11/16/16 20:00 11/17/16 20:40 (Ambien) 5 mg HS PRN PO 11/16/16 21:00 (Trandate) 200 mg BID PO 11/16/16 20:00 11/17/16 20:39 Assessment/Plan Problem List: (1) Pre-eclampsia (2) S/P primary low transverse Assessment and Plan 31 yo POD 9 s/p readmission for pre-eclampsia. She has had 24 hr of magnesium, stopped yesterday at 1830. BP normal on labetalol 200mg bid. LFT trending down. Good uop. Will d/c home with f/u with Dr. Cabezas in 2-3 days for repeat bp. Encouraged pt to take bp at home twice a day and keep log to bring in to clinic. Rosaura Walker MD Nov 18, 2016 07:31
--- NOTE | 2016-11-18 07:33 | HHI.DCPOC ---
Discharge Care Plan Diagnosis: (1) Pre-eclampsia Your Health Problems Are: delivery Report Symptoms to Your Doctor -Temperate above 100.5 degrees -Redness, of incision or excessive or foul smelling drainage -Unusual pain or calf pain -Increased vaginal bleeding -Painful or difficulty urinating -Feelings of extreme sadness or anxiety after 2 weeks Goals to Promote Your Health * To prevent worsening of your condition and complications * To maintain your health at the optimal level Directions to Meet Your Goals Take your medications as prescribed Follow your dietary instruction Follow activity as directed Ensure plenty of rest for recovery Drink fluids for hydration Keep your appointments as scheduled Take your immunizations and boosters as scheduled If your symptoms worsen call your PCP, if no PCP go to Urgent Care Center or Emergency Room Smoking is Dangerous to Your Health. Avoid second hand smoke Call the 24-hour crisis hotline for domestic abuse at Rosaura Walker MD Nov 18, 2016 07:33
[2016-11-18 07:44] VITALS: BP 130/73; PULSE 68
[2016-11-18] MEDS: LABETALOL HCL 200 MG TAB PO SCH (08:34)
== END 2016-11-18 09:00 | disposition home or self-care (01) | DRG 776 ==
LOC: HOBED 15:12 → H2EA 16:06 → OBSVTOIN 16:11
PROVIDERS: ADMIT Obstetrics & Gynecology; ATTEND Obstetrics & Gynecology
DX: O11.5 Pre-existing hypertension with pre-eclampsia, complicating the puerperium (principal); O90.89 Other complications of the puerperium, not elsewhere classified; R21 Rash and other nonspecific skin eruption; O90.81 Anemia of the puerperium; D64.9 Anemia, unspecified; O99.335 Smoking (tobacco) complicating the puerperium
CPT/HCPCS: 80053; 80076; 81001; 84550; 85007; 85025; 85027; 99284; J3475; J7120; Q0163